=== PATIENT | male | born 1985 | race Caucasian/White ===

== ENCOUNTER 2016-12-21 20:19 | Emergency (ER) | payer OTHER, MEDICAID ==
[2016-12-21 21:05] LABS: APPEARANCE,URINE Clear; BILIRUBIN,URINE NEGATIVE (NEGATIVE); COLOR,URINE Yellow; GLUCOSE, URINE (UA) NEGATIVE (NEGATIVE); KETONES,URINE TRACE (NEGATIVE); LEUKOCYTE ESTERASE ,URINE NEGATIVE (NEGATIVE); NITRATE,URINE NEGATIVE (NEGATIVE); OCCULT BLOOD,URINE NEGATIVE (NEG-TRACE); PH,URINE 6.5; UROBILINOGEN,URINE 0.2 (0.2-1.0 EU)
[2016-12-21 21:08] VITALS: RESP 16; TEMP 98.7
[2016-12-21 21:15] LABS: RBC,URINE NEG (0-3AV/HPF); WBC,URINE NEG (0-5AV/HPF)
[2016-12-21] MEDS ORDERED: TAMSULOSIN HYDROCHLORIDE 0.4 MG CAP PO SCH (21:15)
[2016-12-21] MEDS ORDERED: SULFAMETHOXAZOLE/TRIMETHOPRI 800/160 MG PO ONE (21:18)
[2016-12-21] MEDS ORDERED: SULFAMETHOXAZOLE/TRIMETHOPRI 800/160 MG ONE (21:26)
[2016-12-21] MEDS ORDERED: TAMSULOSIN HYDROCHLORIDE 0.4 MG CAP ONE (21:27)
[2016-12-21 21:35] VITALS: BP 126/87; PULSE 88; O2SAT 99
== END 2016-12-21 21:31 | disposition home or self-care (01) ==
LOC: ED 20:19
DX: N41.0 Acute prostatitis (principal)
CPT/HCPCS: 51798; 81001; 99283